=== PATIENT | male | born 1945 | race Caucasian/White ===

== ENCOUNTER 2022-10-10 12:06 | Emergency (ER) | payer OTHER, MEDICARE | END 2022-10-10 12:51 | disposition home or self-care (01) | LOC: ERS 12:06 | DX: S51.811D Laceration without foreign body of right forearm, subsequent encounter (principal); X58.XXXD Exposure to other specified factors, subsequent encounter | CPT/HCPCS: 99282 ==

== ENCOUNTER 2022-10-18 12:03 | Emergency (ER) | payer OTHER, MEDICARE | END 2022-10-18 13:40 | disposition home or self-care (01) | LOC: ERS 12:03 | DX: S41.111D Laceration without foreign body of right upper arm, subsequent encounter (principal); E78.00 Pure hypercholesterolemia, unspecified; W45.8XXD Other foreign body or object entering through skin, subsequent encounter; Z79.899 Other long term (current) drug therapy; Z79.82 Long term (current) use of aspirin ==